=== PATIENT | female | born 1950 | race Caucasian/White ===

== ENCOUNTER 2021-04-08 18:44 | Emergency (ER) | payer MEDICARE ==
[2021-04-08] MEDS ORDERED: Sodium Chloride 0.9% 10 ML Syringe FLUSH PRN (19:02)
[2021-04-08] MEDS ORDERED: Sodium Chloride 0.9% 1,000 ML IV SCH (19:15)
[2021-04-08] MEDS ORDERED: Magnesium Sulfate/Water 2 GM in Premix Bag 1 BAG IV ONE (20:27)
[2021-04-08 21:54] VITALS: BP 152/59; PULSE 71
--- NOTE | 2021-04-08 23:17 | EDM.PDOC ---
ED HPI GENERAL MEDICAL PROBLEM - General Chief Complaint: Syncope Stated Complaint: PASSED OUT Time Seen by Provider: 04/08/21 19:02 Source of Information: Reports: Patient History Limitations: Reports: No Limitations - History of Present Illness INITIAL COMMENTS - FREE TEXT/NARRATIVE: Rozina is a 70-year-old female from the [place], [place] area who was up here on vacation and presents after having a near syncopal episode today. Patient states that she has had a nagging headache that was 3 out of 10 for most of the day and around 1815 hrs. she started to feel lightheaded, weak, dizzy, and kind of "great out." She denies any fall but she did help herself to the ground. This lasted for a few minutes but she thought she should come in and get it checked out. She denies any nausea, vomiting, chest pain or shortness of breath. She has not experienced this before. She states she is probably not the best for keeping up with hydration. 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 headache Pain Score (Numeric/FACES): 3 - Related Data Allergies Allergy/AdvReac Type Severity Reaction Status Date / Time silver Allergy Intermediate Rash Verified 04/08/21 20:22 [From Tegaderm AG Mesh] amoxicillin trihydrate Allergy Rash Verified 04/08/21 20:22 [From Augmentin] phenobarbital Allergy Rash Verified 04/08/21 20:22 potassium clavulanate Allergy Rash Verified 04/08/21 20:22 [From Augmentin] Sulfa (Sulfonamide Allergy Nausea Verified 04/08/21 20:22 Antibiotics) Home Meds: Home Meds Venlafaxine [Effexor XR] 75 mg PO BEDTIME 03/01/14 [History] amLODIPine Bes/Olmesartan Med [Sonia 5-20 MG] 5 - 20 mg PO BEDTIME PRN 03/01/14 [History] diazePAM [Valium] 5 mg PO BEDTIME PRN 03/01/14 [History] Albuterol [Proair HFA] 1 - 2 puff IH ASDIRECTED PRN 03/02/14 [History] Levothyroxine 150 mg PO BEDTIME 03/07/16 [History] Losartan [Cozaar] 10 mg PO BEDTIME 03/07/16 [History] atenoloL [Atenolol] 100 mg PO QAM 03/07/16 [History] buPROPion [Wellbutrin SR] 150 mg PO QAM 03/07/16 [History] Past Medical History HEENT History: Reports: Allergic Rhinitis, Cataract, Impaired Vision, Sinusitis Cardiovascular History: Reports: High Cholesterol, Hypertension, Stents, Other (See Below) Other Cardiovascular History: x2 stents Respiratory History: Reports: Asthma Genitourinary History: Reports: Renal Disease, Other (See Below) Other Genitourinary History: acute renal decrease in renal function Musculoskeletal History: Reports: Arthritis Neurological History: Reports: Migraines Psychiatric History: Reports: Anxiety, Dementia Endocrine/Metabolic History: Reports: Hypothyroidism Hematologic History: Reports: Blood Transfusion(s) - Infectious Disease History Infectious Disease History: Reports: Chicken Pox, Measles, MRSA, Mumps, Rubella - Past Surgical History HEENT Surgical History: Reports: Cataract Surgery, Naso-Sinus Surgery, Tonsillectomy Cardiovascular Surgical History: Reports: Coronary Artery Stent GI Surgical History: Reports: Cholecystectomy Female Surgical History: Reports: D&C Musculoskeletal Surgical History: Reports: Hip Replacement, Other (See Below) Other Musculoskeletal Surgeries/Procedures:: left hip Social & Family History - Tobacco Use Tobacco Use Status *Q: Never Tobacco User - Recreational Drug Use Recreational Drug Use: No ED ROS GENERAL - Review of Systems Review Of Systems: See Below Constitutional: Reports: No Symptoms HEENT: Reports: No Symptoms Respiratory: Reports: No Symptoms Cardiovascular: Reports: Syncope Endocrine: Reports: No Symptoms GI/Abdominal: Reports: No Symptoms : Reports: No Symptoms Musculoskeletal: Reports: No Symptoms Skin: Reports: No Symptoms Neurological: Reports: Dizziness, Headache, Syncope Psychiatric: Reports: No Symptoms Hematologic/Lymphatic: Reports: No Symptoms Immunologic: Reports: No Symptoms - Physical Exam Exam: See Below Exam Limited By: No Limitations General Appearance: Alert, No Apparent Distress, Anxious Eye Exam: Bilateral Eye: EOMI, PERRL Throat/Mouth: Normal Inspection, Normal Lips, Normal Oropharynx, Normal Voice, No Airway Compromise Head Exam: Atraumatic, Normocephalic Neck: Normal Inspection, Supple, Non-Tender, Full Range of Motion. No: Carotid Bruit, Lymphadenopathy (R), Lymphadenopathy (L) Respiratory/Chest: No Respiratory Distress, Lungs Clear, Normal Breath Sounds Cardiovascular: Normal Peripheral Pulses, Regular Rate, Rhythm, No Murmur GI/Abdominal: Normal Bowel Sounds, Soft, Non-Tender Neuro Exam (Abbreviated): Alert, Oriented, CN II-XII Intact, Normal Cognition, No Motor/Sensory Deficits Back Exam: Normal Inspection Extremities: Normal Inspection, Normal Range of Motion, No Pedal Edema, Normal Capillary Refill Psychiatric: Anxious Skin Exam: Warm, Dry, Intact, Normal Color #1 Interpretation EKG Date: 04/08/21 Time: 18:55 Rhythm: NSR Rate (Beats/Min): 82 [place]: Normal P-Wave: Present QRS: Normal ST-T: Other (Nonspecific T wave abnormalities in the anterior leads with biphasic T waves in the inferior leads) QT: Normal Comparison: NA - No Prior EKG Course - Vital Signs Last Recorded V/S: Last Vital Signs Temp 36.7 C 04/08/21 18:53 Pulse 71 04/08/21 21:54 Resp 12 04/08/21 21:54 BP 152/59 H 04/08/21 21:54 Pulse Ox 96 04/08/21 21:54 - Orders/Labs/Meds Orders: Active Orders 24 hr Category Date Time Status Sodium Chloride 0.9% [Normal Saline] 1,000 ml Med 04/08/21 19:15 Active IV ASDIRECTED Sodium Chloride 0.9% [Saline Flush] Med 04/08/21 19:02 Active 10 ml FLUSH ASDIRECTED PRN Saline Lock Insert [OM.PC] Routine Oth 04/08/21 19:02 Ordered EKG 12 Lead [EK] Routine Ther 04/08/21 19:02 Ordered Medication Orders Sodium Chloride (Normal Saline) 1,000 mls @ 500 mls/hr IV ASDIRECTED CONRAD Last Admin: 04/08/21 19:43 Dose: 500 mls/hr Documented by: GABRIEL Sodium Chloride (Sodium Chloride 0.9% 10 Ml Syringe) 10 ml FLUSH ASDIRECTED PRN PRN Reason: Keep Vein Open Last Admin: 04/08/21 19:17 Dose: 10 ml Documented by: GABRIEL Labs: Laboratory Tests 04/08/21 04/08/21 Range/Units 19:17 19:17 WBC 4.7 (4.5-11.0) K/uL RBC 3.39 (3.30-5.50) M/uL Hgb 10.0 L (12.0-15.0) g/dL Hct 29.9 L (36.0-48.0) % MCV 88 (80-98) fL MCH 30 (27-31) pg MCHC 33 (32-36) % Plt Count 207 (150-400) K/uL Neut % (Auto) 40.3 (36-66) % Lymph % (Auto) 37.7 (24-44) % Arroyo % (Auto) 9.4 H (2-6) % Eos % (Auto) 11.5 H (2-4) % Baso % (Auto) 1.1 H (0-1) % Sodium 140 (140-148) mmol/L Potassium 3.7 (3.6-5.2) mmol/L Chloride 104 (100-108) mmol/L Carbon Dioxide 20 L (21-32) mmol/L Anion Gap 19.7 H (5.0-14.0) mmol/L BUN 41 H (7-18) mg/dL Creatinine 2.4 H (0.6-1.0) mg/dL Est Cr Clr Drug Dosing TNP Estimated GFR (MDRD) 20 L (>60) Glucose 73 L (74-106) mg/dL Calcium 8.5 (8.5-10.1) mg/dL Magnesium 1.5 L (1.8-2.4) mg/dL Total Bilirubin 0.2 (0.2-1.0) mg/dL AST 27 (15-37) U/L ALT 31 (12-78) U/L Alkaline Phosphatase 77 (46-116) U/L Troponin I < 0.017 (0.000-0.056) ng/mL Total Protein 6.7 (6.4-8.2) g/dL Albumin 3.5 (3.4-5.0) g/dL Globulin 3.2 (2.3-3.5) g/dL Albumin/Globulin Ratio 1.1 L (1.2-2.2) Meds: Medications Generic Name Dose Route Start Last Admin Trade Name Freq PRN Reason Stop Dose Admin Sodium Chloride 1,000 mls @ 500 mls/hr 04/08/21 19:15 04/08/21 19:43 Normal Saline IV 500 mls/hr ASDIRECTED CONRAD Administration Sodium Chloride 10 ml 04/08/21 19:02 04/08/21 19:17 Sodium Chloride 0.9% 10 Ml Syringe FLUSH 10 ml ASDIRECTED PRN Administration Keep Vein Open Discontinued Medications Generic Name Dose Route Start Last Admin Trade Name Farzaneh PRN Reason Stop Dose Admin Magnesium Sulfate 2 gm/ Premix 50 mls @ 25 mls/hr 04/08/21 20:27 04/08/21 21:06 IV 04/08/21 22:26 25 mls/hr ONETIME ONE Administration - Re-Assessments/Exams Free Text/Narrative Re-Assessment/Exam: 04/08/21 23:24 EKG was unremarkable for any significant findings showing normal sinus rhythm with rate of 82 bpm. Patient did have some nonspecific T wave abnormalities in the anterior leads. Her labs show a normal CBC. Her comprehensive metabolic panel shows a sodium 140, potassium 3.7, chloride of 104 with a bicarbonate of 20, BUN of 41 with a creatinine of 2.4 and a GFR calculated at 20. Patient's glucose is 73. Magnesium was 1.5 and troponin is negative at less than 0.017. We repleted her magnesium with magnesium 2 g IV. We also hydrated her with a liter of normal saline. Patient was monitored her entire time here and remained vitally stable in normal sinus rhythm. She feels better after hydration. At this time I believe she is suitable for discharge home in satisfactory condition. I did recommend she restart her magnesium daily and follow-up with her provider concerning her kidney injury related to contrast dye. She is currently stage IV kidney disease which is severe. Departure - Departure Time of Disposition: 23:15 Disposition: Home, Self-Care 01 Clinical Impression: Near syncope, Hypomagnesemia, Chronic kidney disease, stage IV (severe), Dehydration - Discharge Information Instructions: Near-Syncope, Food Basics for Chronic Kidney Disease, Hypomagnesemia, Dehydration, Adult, [id number] Referrals: PCP,None [Primary Care Provider] - Forms: ED Department Discharge Care Plan Goals: Your work-up today has shown that your near syncope was likely due to a combination of your low magnesium and moderate dehydration. I recommend restarting your magnesium daily as before. Rowan do it every other day if diarrhea becomes an issue. Follow-up with your local doctor concerning the continued kidney issue. Make sure that you drink plenty of fluids to prevent further dehydration. It was a delight meeting you and have fun appear before you return to [place]. Sepsis Event Note (ED) - Evaluation Sepsis Screening Result: No Definite Risk - Focused Exam Vital Signs: Vital Signs Temp Pulse Resp BP Pulse Ox 04/08/21 21:54 71 12 152/59 H 96 04/08/21 21:01 70 11 L 134/56 L 96 04/08/21 20:33 71 12 154/58 H 95 04/08/21 19:49 94 13 133/64 96 04/08/21 18:53 36.7 C 75 12 151/59 H 97 - Problem List & Annotations (1) Near syncope SNOMED Code(s): 775428415 Code(s): R55 - SYNCOPE AND COLLAPSE Status: Acute Priority: High Current Visit: Yes (2) Hypomagnesemia SNOMED Code(s): 890123856 Code(s): E83.42 - HYPOMAGNESEMIA Status: Acute Priority: High Current Visit: Yes (3) Chronic kidney disease, stage IV (severe) SNOMED Code(s): 043376426 Code(s): N18.4 - CHRONIC KIDNEY DISEASE, STAGE 4 (SEVERE) Status: Acute Priority: High Current Visit: Yes (4) Dehydration SNOMED Code(s): 84530130 Code(s): E86.0 - DEHYDRATION Status: Acute Priority: High Current Visit: Yes - Problem List Review Problem List Initiated/Reviewed/Updated: Yes - My Orders Last 24 Hours: My Active Orders 04/08/21 19:02 Sodium Chloride 0.9% [Saline Flush] 10 ml FLUSH ASDIRECTED PRN Saline Lock Insert [OM.PC] Routine EKG 12 Lead [EK] Routine 04/08/21 19:15 Sodium Chloride 0.9% [Normal Saline] 1,000 ml IV ASDIRECTED - Assessment/Plan Last 24 Hours: My Active Orders 04/08/21 19:02 Sodium Chloride 0.9% [Saline Flush] 10 ml FLUSH ASDIRECTED PRN Saline Lock Insert [OM.PC] Routine EKG 12 Lead [EK] Routine 04/08/21 19:15 Sodium Chloride 0.9% [Normal Saline] 1,000 ml IV ASDIRECTED
== END 2021-04-08 23:27 | disposition home or self-care (01) ==
LOC: JP.ED 18:44
DX: R55 Syncope and collapse (principal); I12.9 Hypertensive chronic kidney disease with stage 1 through stage 4 chronic kidney disease, or unspecified chronic kidney disease; N18.9 Chronic kidney disease, unspecified; E86.0 Dehydration; E83.42 Hypomagnesemia; E78.00 Pure hypercholesterolemia, unspecified; E03.9 Hypothyroidism, unspecified; Z79.899 Other long term (current) drug therapy; Z91.09 Other allergy status, other than to drugs and biological substances; Z88.0 Allergy status to penicillin; Z88.2 Allergy status to sulfonamides; Z88.8 Allergy status to other drugs, medicaments and biological substances
CPT/HCPCS: 36415; 80053; 83735; 84484; 85025; 93005; 96365; 96366; 99284; J3475; J7030